=== PATIENT | male | born 1990 | race Hispanic/Latino ===

== ENCOUNTER 2017-12-05 07:46 | Emergency (ER) | payer BC, SELFPAY ==
[2017-12-05 08:23] LABS: Bilirubin Negative (Negative); Blood, Urine Negative (Negative); Glucose, Urine (Dipstick) Negative (Negative); Leukocyte Negative (Negative); Nitrite Negative (Negative); Protein, Urine (Dipstick) Negative (Neg-Trace); Specific Gravity, Urine 1.025 (1.005-1.030); Urobilinogen 0.2 mg/dL (0.2-1.0)
[2017-12-05 08:24] LABS: Clarity Clear (Clear)
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
== END 2017-12-05 13:11 | disposition home or self-care (01) ==
LOC: ERS 07:46
DX: N50.811 Right testicular pain (principal)
CPT/HCPCS: 76870; 81003; 93976

== ENCOUNTER 2017-12-20 07:55 | Outpatient (CLI) | payer OTHER | END 2017-12-20 07:56 | disposition home or self-care (01) | LOC: BICULT 07:55 | PROVIDERS: ATTEND Urology | DX: N50.82 Scrotal pain (principal); R35.0 Frequency of micturition | CPT/HCPCS: 76770 ==

== ENCOUNTER 2020-11-09 14:52 | Emergency (ER) | payer BC ==
[2020-11-09] MEDS ORDERED: Ketorolac Tromethamine 30 MG/ML VIAL ONE (16:40)
[2020-11-09] MEDS ORDERED: Cyclobenzaprine 10 MG TAB ONE (16:40)
[2020-11-09 16:57] LABS: Bilirubin Negative (Negative); Blood, Urine Negative (Negative); Clarity Clear (Clear); Glucose, Urine (Dipstick) Normal (Negative); Ketone, Urine Negative (Negative); Leukocyte Negative Leu/uL (Negative); Nitrite Negative (Negative); Protein, Urine (Dipstick) Negative (Neg-Trace); Specific Gravity, Urine 1.018 (1.002-1.036); Urobilinogen Normal mg/dL (Less than 2)
== END 2020-11-09 17:29 | disposition home or self-care (01) ==
LOC: ERS 14:52
DX: S39.012A Strain of muscle, fascia and tendon of lower back, initial encounter (principal); X50.0XXA Overexertion from strenuous movement or load, initial encounter
CPT/HCPCS: 72100; 81003; 96372; J1885